=== PATIENT | female | born 1955 | race Caucasian/White ===

== ENCOUNTER 2020-04-05 06:54 | Outpatient (CLI) | payer OTHER, MEDICARE ==
[~2020-04-05 06:54] MED LIST: ANAS1TAB PO; ASCO500C18 PO; BLAC540C4; CALCIUM; CHOL100046 PO; COLLAGEN; MAGN500C16 PO; TURM1CAP; VITA1CAP
[2020-04-05 07:26] LABS: TOTAL HEMOGLOBIN 16.5 G/dl (12.0-16.0)
== END 2020-04-05 23:59 | disposition home or self-care (01) ==
LOC: RT 06:54
PROVIDERS: ATTEND Internal Medicine
DX: J44.9 Chronic obstructive pulmonary disease, unspecified (principal)
CPT/HCPCS: 85018; 94010; 94727; 94729